=== PATIENT | male | born 1985 | race Caucasian/White ===

== ENCOUNTER 2019-05-23 04:27 | Inpatient (IN) | payer MEDICAID ==
[2019-05-23] VITALS (40 sets, daily range): BP systolic 138–175; BP diastolic 92–115
[~2019-05-23] VITALS: Ht 370.8 cm; Wt 40.4 kg
[2019-05-23] MEDS ORDERED: ASPIRIN 81MG TABLET PO ONE (04:45)
[2019-05-23] MEDS ORDERED: DILTIAZEM HCL 5MG/ML 5ML VIAL IV ONE ×2 (04:45→05:45)
[2019-05-23] MEDS ORDERED: DILTIAZEM HCL 125 MG in DEXT 5% WATER 100 ML IV ONE ×2 (04:45→05:00)
[2019-05-23 05:01] LABS: BASOPHILS % 1.2 % (0.0-2.0); EOSINOPHILS % 7.1 % (0.0-5.0); HEMATOCRIT. 31.8 % (42.0-52.0); HEMOGLOBIN. 10.7 g/dL (14.0-18.0); MEAN CORPUSCULAR HEMOGLOBIN 29.2 pg (28.0-32.0); MEAN PLATELET VOLUME 7.4 fl (7.4-10.4); MONOCYTES % 7.1 % (2.0-8.0); NEUTROPHILS % 55.6 % (40.0-76.0); PLATELET 215 x1000/uL (130-400); RED BLOOD CELL COUNT 3.65 mill/uL (4.7-6.1); RED CELL DISTRIBUTION WIDTH 14.7 % (11.6-14.6)
[2019-05-23 05:11] LABS: CHLORIDE 98 mEq/L (98-107)
[2019-05-23] MEDS ORDERED: NITROGLYCERIN 0.4MG TABLET SL SL PRN ×2 (08:00)
[2019-05-23] MEDS ORDERED: ZOLPIDEM TARTRATE 5MG TABLET PO PRN (08:00)
[2019-05-23] MEDS ORDERED: DOCUSATE SODIUM 100MG CAPSULE PO PRN (08:15)
[2019-05-23] MEDS ORDERED: DIPHENHYDRAMINE 50MG/ML VIAL IV PRN (08:15)
[2019-05-23] MEDS ORDERED: ONDANSETRON HCL 4MG/2ML INJ IV PRN (08:15)
[2019-05-23] MEDS ORDERED: GUAIFENESIN 200MG/10ML SUGAR FREE UDC PO PRN (08:15)
[2019-05-23] MEDS ORDERED: LORAZEPAM 0.5MG TABLET PO PRN (08:15)
[2019-05-23] MEDS ORDERED: IPRATROPIUM/ALBUTEROL 0.5-3(2.5)MG/3ML NEB NEB PRN (08:15)
[2019-05-23] MEDS ORDERED: CLONIDINE 0.1MG TABLET PO PRN (08:15)
[2019-05-23] MEDS ORDERED: MAGNESIUM/ALUMINUM HYDROXIDE/SIMETHICONE 30ML UDC PO PRN (08:15)
[2019-05-23] MEDS: ACETAMINOPHEN 325MG TABLET PO PRN ×4 (09:22→22:19)
[2019-05-23] MEDS: FOLIC ACID/VITAMIN B COMP W-C TABLET PO SCH (09:22)
[2019-05-23] MEDS: FAMOTIDINE 20MG TABLET PO SCH (09:22)
[2019-05-23] MEDS: SEVELAMER CARBONATE 800 MG TABLET PO SCH ×3 (09:22→18:16)
[2019-05-23] MEDS: ASPIRIN 325MG EC TABLET PO SCH (09:22)
[2019-05-23] MEDS: ENOXAPARIN 30MG/0.3ML SYR SUBCUT SCH (09:23)
[2019-05-23] MEDS: DILTIAZEM HCL 90MG TABLET PO SCH ×3 (13:00→23:17)
[2019-05-23 15:54] LABS: CREATINE KINASE MB FRACTION 1.9 ng/mL (0.5-3.6)
[2019-05-24] VITALS (21 sets, daily range): BP systolic 135–170; BP diastolic 66–102
[2019-05-24 01:03] LABS: CREATINE KINASE 78 IU/L (39-308)
[2019-05-24 01:04] LABS: CREATINE KINASE MB FRACTION 1.6 ng/mL (0.5-3.6)
[2019-05-24] MEDS: ACETAMINOPHEN 325MG TABLET PO PRN ×2 (03:34→08:11)
[2019-05-24] MEDS: DILTIAZEM HCL 90MG TABLET PO SCH ×2 (05:18→11:05)
[2019-05-24] MEDS: FOLIC ACID/VITAMIN B COMP W-C TABLET PO SCH (08:07)
[2019-05-24] MEDS: FAMOTIDINE 20MG TABLET PO SCH (08:08)
[2019-05-24] MEDS: SEVELAMER CARBONATE 800 MG TABLET PO SCH (08:09)
[2019-05-24] MEDS: ASPIRIN 325MG EC TABLET PO SCH (08:09)
[2019-05-24] MEDS: ENOXAPARIN 30MG/0.3ML SYR SUBCUT SCH (08:09)
[2019-05-24 09:42] LABS: HEMOGLOBIN 9.7 g/dL (14.0-18.0); MEAN CORPUSCULAR VOLUME 86.9 fL (80.0-94.0); PLATELET 163 x1000/uL (130-400); RED BLOOD CELL COUNT 3.34 mill/uL (4.7-6.1); RED CELL DISTRIBUTION WIDTH 14.5 % (11.6-14.6)
[2019-05-24] MEDS ORDERED: DILT360C27 PO (11:49)
[2019-05-24] MEDS ORDERED: ASPI-986 PO (11:52)
[2019-05-24] MEDS ORDERED: SODIUM POLYSTYRENE SULFONATE 15 G/60 ML BOT PO NR (12:30)
[2019-05-24] MEDS ORDERED: BUTALBITAL/ACETAMINOPHEN/CAFFEINE 50/325/40MG TABLET PO PRN (13:00)
== END 2019-05-24 13:10 | disposition home or self-care (01) | DRG 201 ==
LOC: ER 04:27 → EDBEDREQSVC 06:31 → CVICU 06:31 → EDBEDREQ 06:31 → EDBEDREQTM 06:31 → ENRESERV 07:15
PROVIDERS: ADMIT Internal Medicine; ATTEND Internal Medicine
PROC: 3E1M39Z Irrigation of Peritoneal Cavity using Dialysate, Percutaneous Approach (ICD-10-PCS; principal; 2019-05-23)
DX: I48.91 Unspecified atrial fibrillation (principal); E43 Unspecified severe protein-calorie malnutrition; I12.0 Hypertensive chronic kidney disease with stage 5 chronic kidney disease or end stage renal disease; N18.6 End stage renal disease; E83.51 Hypocalcemia; E87.1 Hypo-osmolality and hyponatremia; Z90.49 Acquired absence of other specified parts of digestive tract; Z99.2 Dependence on renal dialysis; E66.01 Morbid (severe) obesity due to excess calories; I88.9 Nonspecific lymphadenitis, unspecified; Z68.1 Body mass index [BMI] 19.9 or less, adult
CPT/HCPCS: 36415; 71045; 80048; 80061; 82550; 82553; 83036; 83880; 84484; 85027; 93005; 93306; 93970; 96365; 96366; 96376; 99291; J1650; J3490; J7042; J7060; J7620

== ENCOUNTER 2022-05-17 07:53 | Inpatient (IN) | payer MEDICAID, OTHER ==
[~2022-05-17] VITALS: Ht 182.9 cm; Wt 86.2 kg
[2022-05-17] VITALS (38 sets, daily range): BP systolic 97–172; BP diastolic 54–104
[~2022-05-17 07:53] MED LIST: ASPI-986 PO; DILT360C27 PO
[2022-05-17] MEDS ORDERED: KETOROLAC 30MG/ML VIAL IV STA (08:05)
[2022-05-17] MEDS ORDERED: SODIUM CHLORIDE 0.9% 500 ML IV ONE (08:15)
[2022-05-17] MEDS ORDERED: METOCLOPRAMIDE HCL 10MG/2ML VIAL IV ONE (08:15)
[2022-05-17 08:49] LABS: CHLORIDE 93 mEq/L (98-107)
[2022-05-17 08:52] LABS: EOSINOPHILS % 3.3 % (0.0-5.0); HEMATOCRIT. 36.6 % (42.0-52.0); HEMOGLOBIN. 12.4 g/dL (14.0-18.0); LYMPHOCYTES % 23.2 % (20.0-50.0); MEAN CORPUSCULAR VOLUME 91.7 fL (80.0-94.0); MEAN PLATELET VOLUME 7.9 fl (7.4-10.4); MONOCYTES % 8.3 % (2.0-8.0); NEUTROPHILS % 64.2 % (40.0-76.0); PLATELET 147 x1000/uL (130-400); RED BLOOD CELL COUNT 3.99 mill/uL (4.7-6.1); RED CELL DISTRIBUTION WIDTH 14.1 % (11.6-14.6)
[2022-05-17] MEDS ORDERED: MORPHINE SULFATE 4 MG/ML CPJ (NOT FOR IM USE) IV ONE (09:45)
[2022-05-17] MEDS ORDERED: DEXAMETHASONE 10 MG/ML VIAL IV ONE (11:15)
[2022-05-17] MEDS ORDERED: LEVETIRACETAM 1000MG PREMIX 100 ML IV ONE (11:15)
[2022-05-17] MEDS ORDERED: MORPHINE SULFATE 2 MG/ML CPJ (NOT FOR IM USE) IV NR (11:45)
[2022-05-17] MEDS ORDERED: HYDRALAZINE 20MG/ML VIAL IV ONE (12:00)
[2022-05-17] MEDS ORDERED: NICARDIPINE 100 MG in SODIUM CHLORIDE 0.9% 60 ML IV PRN (15:00)
[2022-05-17] MEDS ORDERED: NALOXONE HCL 0.4MG/ML VIAL IV PRN (15:45)
[2022-05-17] MEDS ORDERED: HYDR-4135 MT (15:54)
[2022-05-17] MEDS ORDERED: CINA60 MT (15:54)
[2022-05-17] MEDS ORDERED: CARV25TA47 MT (15:54)
[2022-05-17] MEDS ORDERED: SEVE800T8 MT (15:54)
[2022-05-17] MEDS ORDERED: NEPVIT MT (15:54)
[2022-05-17] MEDS: MORPHINE SULFATE 2 MG/ML CPJ (NOT FOR IM USE) IV PRN ×2 (16:04→20:04)
[2022-05-17] MEDS: LEVETIRACETAM 500MG PREMIX 100 ML IV SCH (17:56)
[2022-05-17] MEDS: HYDRALAZINE HCL 50MG TABLET PO SCH (17:56)
[2022-05-17] MEDS: ONDANSETRON HCL 4MG/2ML INJ IV PRN (20:03)
[2022-05-17] MEDS: CARVEDILOL 12.5MG TABLET PO SCH (20:03)
[2022-05-18] VITALS (91 sets, daily range): BP systolic 94–159; BP diastolic 38–89
[2022-05-18] MEDS: MORPHINE SULFATE 2 MG/ML CPJ (NOT FOR IM USE) IV PRN ×4 (00:27→20:16)
[2022-05-18 05:17] LABS: BASOPHILS % 0.1 % (0.0-2.0); EOSINOPHILS % 0.1 % (0.0-5.0); HEMATOCRIT. 37.6 % (42.0-52.0); HEMOGLOBIN. 12.8 g/dL (14.0-18.0); LYMPHOCYTES % 18.2 % (20.0-50.0); MEAN CORPUSCULAR HEMOGLOBIN 31.4 pg (28.0-32.0); MEAN CORPUSCULAR VOLUME 92.5 fL (80.0-94.0); MEAN PLATELET VOLUME 8.1 fl (7.4-10.4); MONOCYTES % 3.9 % (2.0-8.0); NEUTROPHILS % 77.7 % (40.0-76.0); PLATELET 161 x1000/uL (130-400); RED BLOOD CELL COUNT 4.07 mill/uL (4.7-6.1)
[2022-05-18 05:23] LABS: PHOSPHORUS 6.5 mg/dL (2.5-4.9)
[2022-05-18] MEDS: HYDRALAZINE HCL 50MG TABLET PO SCH ×2 (09:00→17:00)
[2022-05-18] MEDS: CARVEDILOL 12.5MG TABLET PO SCH ×2 (09:00→20:22)
[2022-05-18] MEDS: LEVETIRACETAM 500MG PREMIX 100 ML IV SCH ×2 (09:31→20:11)
[2022-05-18] MEDS ORDERED: LIDOCAINE HCL 2%/EPINEPHRINE 1:100,000 20 ML VIAL INFIL ONE (10:51)
[2022-05-18] MEDS ORDERED: THROMBIN (BOVINE) 5000 UNITS/VIAL TOP ONE (10:52)
[2022-05-18] MEDS ORDERED: BACITRACIN 15GM TUBE TOP ONE (10:54)
[2022-05-18] MEDS ORDERED: GENTAMICIN SULF 40MG/ML 2ML VIAL ONE (10:54)
[2022-05-18] MEDS ORDERED: PROPOFOL 200MG/20ML VIAL IV ONE (12:53)
[2022-05-18] MEDS ORDERED: FENTANYL CITRATE/PF 50MCG/ML 2ML VIAL ONE (12:53)
[2022-05-18] MEDS ORDERED: LIDOCAINE HCL 2% 5ML SYRINGE IV ONE (12:53)
[2022-05-18] MEDS ORDERED: ROCURONIUM BROMIDE 10MG/ML VIAL 5ML IV ONE (13:01)
[2022-05-18 13:49] LABS: HEPATITIS B SURFACE ANTIGEN NEGATIVE
[2022-05-18] MEDS ORDERED: GLYCOPYRROLATE 0.2 MG/ML 2ML VIAL ONE ×2 (14:26→14:48)
[2022-05-18] MEDS ORDERED: NEOSTIGMINE METHYLSULFATE 1MG/ML 10 ML VIAL ONE (14:26)
[2022-05-18] MEDS ORDERED: DEXAMETHASONE 4MG/ML 1ML VIAL ONE (14:48)
[2022-05-18] MEDS ORDERED: ONDANSETRON HCL 4MG/2ML INJ ONE (14:48)
[2022-05-18] MEDS: NICARDIPINE 100 MG in SODIUM CHLORIDE 0.9% 60 ML IV PRN (15:26)
[2022-05-18] MEDS: DEXT 5%/0.9% NACL 1,000 ML IV SCH (15:56)
[2022-05-18] MEDS: CEFAZOLIN 1000MG PREMIX 50 ML IV SCH (21:57)
[2022-05-18] MEDS ORDERED: CEFAZOLIN SODIUM 1000MG/VIAL IV SCH (22:00)
[2022-05-19] VITALS (110 sets, daily range): BP systolic 106–180; BP diastolic 46–116
[2022-05-19] MEDS: MORPHINE SULFATE 2 MG/ML CPJ (NOT FOR IM USE) IV PRN ×3 (00:11→20:18)
[2022-05-19 04:33] LABS: BASOPHILS % 0.1 % (0.0-2.0); HEMATOCRIT. 35.6 % (42.0-52.0); LYMPHOCYTES % 12.1 % (20.0-50.0); MEAN CORPUSCULAR HEMOGLOBIN 31.6 pg (28.0-32.0); MEAN CORPUSCULAR VOLUME 93.4 fL (80.0-94.0); MEAN PLATELET VOLUME 7.9 fl (7.4-10.4); MONOCYTES % 4.7 % (2.0-8.0); NEUTROPHILS % 83.1 % (40.0-76.0); PLATELET 150 x1000/uL (130-400); RED BLOOD CELL COUNT 3.81 mill/uL (4.7-6.1); RED CELL DISTRIBUTION WIDTH 14.1 % (11.6-14.6)
[2022-05-19 04:49] LABS: PHOSPHORUS 6.5 mg/dL (2.5-4.9)
[2022-05-19] MEDS: CEFAZOLIN 1000MG PREMIX 50 ML IV SCH ×3 (05:56→21:34)
[2022-05-19] MEDS: CARVEDILOL 12.5MG TABLET PO SCH ×2 (08:52→20:07)
[2022-05-19] MEDS: LEVETIRACETAM 500MG PREMIX 100 ML IV SCH ×2 (08:52→20:07)
[2022-05-19] MEDS: HYDRALAZINE HCL 50MG TABLET PO SCH (08:52)
[2022-05-19] MEDS: DEXT 5%/0.9% NACL 1,000 ML IV SCH (11:45)
[2022-05-19] MEDS: NICARDIPINE 100 MG in SODIUM CHLORIDE 0.9% 60 ML IV PRN ×2 (12:14→21:34)
[2022-05-19] MEDS: HYDRALAZINE HCL 100MG TABLET PO SCH (20:07)
[2022-05-20] VITALS (101 sets, daily range): BP systolic 85–189; BP diastolic 49–88
[2022-05-20] MEDS: MORPHINE SULFATE 2 MG/ML CPJ (NOT FOR IM USE) IV PRN ×5 (01:02→21:11)
[2022-05-20] MEDS: DEXT 5%/0.9% NACL 1,000 ML IV SCH (08:01)
[2022-05-20] MEDS: CARVEDILOL 12.5MG TABLET PO SCH ×2 (08:23→21:10)
[2022-05-20] MEDS: LEVETIRACETAM 500MG PREMIX 100 ML IV SCH ×2 (08:23→21:10)
[2022-05-20] MEDS: HYDRALAZINE HCL 100MG TABLET PO SCH ×2 (08:23→21:10)
[2022-05-20] MEDS: NEO/POLYMYX B SULF/DEXAMETH 0.1% OPHTH SUSP 5ML BOTHEYE SCH ×2 (11:08→17:51)
[2022-05-20] MEDS: CALCIUM ACETATE 667MG CAPSULE PO SCH ×2 (11:08→16:56)
[2022-05-20] MEDS: NICARDIPINE 100 MG in SODIUM CHLORIDE 0.9% 60 ML IV PRN ×2 (11:09→21:21)
[2022-05-21] VITALS (98 sets, daily range): BP systolic 0–177; BP diastolic 0–96
[2022-05-21] MEDS: DEXT 5%/0.9% NACL 1,000 ML IV SCH (02:37)
[2022-05-21] MEDS: MORPHINE SULFATE 2 MG/ML CPJ (NOT FOR IM USE) IV PRN ×4 (02:40→14:26)
[2022-05-21] MEDS: NEO/POLYMYX B SULF/DEXAMETH 0.1% OPHTH SUSP 5ML BOTHEYE SCH ×4 (07:26→17:02)
[2022-05-21] MEDS: CALCIUM ACETATE 667MG CAPSULE PO SCH ×3 (07:29→17:02)
[2022-05-21] MEDS: LEVETIRACETAM 500MG PREMIX 100 ML IV SCH ×2 (08:13→20:34)
[2022-05-21] MEDS: HYDRALAZINE HCL 100MG TABLET PO SCH ×2 (08:13→20:34)
[2022-05-21] MEDS: CARVEDILOL 12.5MG TABLET PO SCH ×2 (08:14→20:34)
[2022-05-21] MEDS: NICARDIPINE 100 MG in SODIUM CHLORIDE 0.9% 60 ML IV PRN (10:21)
[2022-05-21 15:54] LABS: BASOPHILS % 0.7 % (0.0-2.0); HEMATOCRIT. 38.6 % (42.0-52.0); HEMOGLOBIN. 12.9 g/dL (14.0-18.0); LYMPHOCYTES % 14.8 % (20.0-50.0); MEAN CORPUSCULAR HEMOGLOBIN 31.4 pg (28.0-32.0); MEAN CORPUSCULAR VOLUME 94.2 fL (80.0-94.0); MEAN PLATELET VOLUME 7.6 fl (7.4-10.4); MONOCYTES % 9.3 % (2.0-8.0); NEUTROPHILS % 68.2 % (40.0-76.0); PLATELET 133 x1000/uL (130-400); RED CELL DISTRIBUTION WIDTH 14.4 % (11.6-14.6)
[2022-05-21] MEDS: ONDANSETRON HCL 4MG/2ML INJ IV PRN (17:58)
[2022-05-21] MEDS: MORPHINE SULFATE 4 MG/ML CPJ (NOT FOR IM USE) IV PRN ×2 (19:39→23:45)
[2022-05-22] VITALS (100 sets, daily range): BP systolic 119–165; BP diastolic 69–96
[2022-05-22] MEDS: MORPHINE SULFATE 4 MG/ML CPJ (NOT FOR IM USE) IV PRN ×4 (03:23→11:02)
[2022-05-22] MEDS: NEO/POLYMYX B SULF/DEXAMETH 0.1% OPHTH SUSP 5ML BOTHEYE SCH ×5 (03:30→17:10)
[2022-05-22 05:42] LABS: EOSINOPHILS % 11.9 % (0.0-5.0); HEMATOCRIT. 35.9 % (42.0-52.0); LYMPHOCYTES % 21.4 % (20.0-50.0); MEAN CORPUSCULAR HEMOGLOBIN 31.1 pg (28.0-32.0); MEAN PLATELET VOLUME 7.9 fl (7.4-10.4); NEUTROPHILS % 56.7 % (40.0-76.0); PLATELET 130 x1000/uL (130-400); RED BLOOD CELL COUNT 3.86 mill/uL (4.7-6.1); RED CELL DISTRIBUTION WIDTH 13.6 % (11.6-14.6)
[2022-05-22] MEDS: CALCIUM ACETATE 667MG CAPSULE PO SCH ×3 (07:44→17:10)
[2022-05-22] MEDS: LEVETIRACETAM 500MG PREMIX 100 ML IV SCH ×2 (08:01→21:23)
[2022-05-22] MEDS: HYDRALAZINE HCL 100MG TABLET PO SCH ×2 (08:01→21:23)
[2022-05-22] MEDS: CARVEDILOL 12.5MG TABLET PO SCH ×2 (08:01→21:23)
[2022-05-22] MEDS ORDERED: CLONIDINE 0.1MG TABLET PO PRN (10:15)
[2022-05-22] MEDS: HYDROCODONE/ACETAMINOPHEN 5/325MG TABLET PO PRN (14:58)
[2022-05-22] MEDS ORDERED: NALOXONE HCL 0.4MG/ML VIAL IV PRN (16:45)
[2022-05-22] MEDS: ONDANSETRON HCL 4MG/2ML INJ IV PRN (18:03)
[2022-05-22] MEDS ORDERED: MAGNESIUM 1 G PREMIX 100 ML IV NR (19:00)
[2022-05-23] VITALS (73 sets, daily range): BP systolic 123–168; BP diastolic 70–96
[2022-05-23] MEDS: NEO/POLYMYX B SULF/DEXAMETH 0.1% OPHTH SUSP 5ML BOTHEYE SCH ×5 (00:33→23:03)
[2022-05-23] MEDS: HYDROCODONE/ACETAMINOPHEN 5/325MG TABLET PO PRN ×2 (00:39→10:50)
[2022-05-23] MEDS: CALCIUM ACETATE 667MG CAPSULE PO SCH ×3 (06:41→18:13)
[2022-05-23 07:00] LABS: BASOPHILS % 0.4 % (0.0-2.0); HEMATOCRIT. 34.4 % (42.0-52.0); HEMOGLOBIN. 11.7 g/dL (14.0-18.0); LYMPHOCYTES % 18.6 % (20.0-50.0); MEAN CORPUSCULAR HEMOGLOBIN 31.4 pg (28.0-32.0); MEAN CORPUSCULAR VOLUME 92.3 fL (80.0-94.0); MEAN PLATELET VOLUME 8.2 fl (7.4-10.4); MONOCYTES % 8.6 % (2.0-8.0); NEUTROPHILS % 63.4 % (40.0-76.0); PLATELET 133 x1000/uL (130-400); RED BLOOD CELL COUNT 3.73 mill/uL (4.7-6.1); RED CELL DISTRIBUTION WIDTH 13.6 % (11.6-14.6)
[2022-05-23] MEDS: CARVEDILOL 12.5MG TABLET PO SCH ×2 (08:33→20:31)
[2022-05-23] MEDS: LEVETIRACETAM 500MG PREMIX 100 ML IV SCH ×2 (08:33→20:31)
[2022-05-23] MEDS: FOLIC ACID/VITAMIN B COMP W-C TABLET PO SCH (08:34)
[2022-05-23] MEDS: HYDRALAZINE HCL 100MG TABLET PO SCH ×2 (08:34→20:32)
[2022-05-23] MEDS: NICARDIPINE 100 MG in SODIUM CHLORIDE 0.9% 60 ML IV PRN (11:52)
[2022-05-23] MEDS: AMLODIPINE 5MG TABLET PO SCH (13:43)
[2022-05-23] MEDS ORDERED: HYDRALAZINE 20MG/ML VIAL IV PRN (18:45)
[2022-05-24] VITALS (70 sets, daily range): BP systolic 121–173; BP diastolic 74–103
[2022-05-24 05:27] LABS: BASOPHILS % 0.2 % (0.0-2.0); HEMATOCRIT. 35.9 % (42.0-52.0); LYMPHOCYTES % 18.4 % (20.0-50.0); MEAN CORPUSCULAR HEMOGLOBIN 31.3 pg (28.0-32.0); MEAN CORPUSCULAR VOLUME 93.5 fL (80.0-94.0); MEAN PLATELET VOLUME 8.1 fl (7.4-10.4); MONOCYTES % 6.5 % (2.0-8.0); NEUTROPHILS % 67.9 % (40.0-76.0); PLATELET 146 x1000/uL (130-400); RED BLOOD CELL COUNT 3.83 mill/uL (4.7-6.1); RED CELL DISTRIBUTION WIDTH 13.8 % (11.6-14.6)
[2022-05-24] MEDS: NEO/POLYMYX B SULF/DEXAMETH 0.1% OPHTH SUSP 5ML BOTHEYE SCH ×2 (06:10→12:01)
[2022-05-24] MEDS: CALCIUM ACETATE 667MG CAPSULE PO SCH ×3 (06:10→17:15)
[2022-05-24] MEDS: AMLODIPINE 5MG TABLET PO SCH (08:51)
[2022-05-24] MEDS: FOLIC ACID/VITAMIN B COMP W-C TABLET PO SCH (08:51)
[2022-05-24] MEDS: CARVEDILOL 12.5MG TABLET PO SCH ×2 (08:51→21:28)
[2022-05-24] MEDS: HYDRALAZINE HCL 100MG TABLET PO SCH ×3 (08:51→21:28)
[2022-05-24] MEDS: LEVETIRACETAM 500MG PREMIX 100 ML IV SCH ×2 (08:52→21:27)
[2022-05-24] MEDS: NICARDIPINE 100 MG in SODIUM CHLORIDE 0.9% 60 ML IV PRN (09:15)
[2022-05-24] MEDS: ONDANSETRON HCL 4MG/2ML INJ IV PRN (10:45)
[2022-05-24] MEDS: MORPHINE SULFATE 2 MG/ML CPJ (NOT FOR IM USE) IV PRN (10:53)
[2022-05-24] MEDS: DILTIAZEM HCL 30MG TABLET PO SCH ×2 (12:03→18:21)
[2022-05-24] MEDS: DEXAMETHASONE 4MG/ML 1ML VIAL IV SCH ×2 (12:45→17:15)
[2022-05-24 18:52] LABS: BG BASE EXCESS -0.1 mmol/L (-2.0-2.0); BG CARBOXYHEMOGLOBIN 1.5 % (0.5-1.5); BG DEOXYHEMOGLOBIN 3.8 % (0.0-5.0); BG FRACTION INSPIRED OXYGEN 21; BG HCO3 ACT 24.6 mmol/L (22.0-26.0); BG METHEMOGLOBIN 0.1 % (0.0-1.5); BG OXYGEN SATURATION 96.1 % (92.0-98.5); BG OXYHEMOGLOBIN 94.6 % (94.0-97.0); BG PCO2 40.2 mmHg (35.0-45.0); BG PH 7.404 (7.350-7.450); BG PO2 85.4 mmHg (75.0-100.0); BG SAMPLE SITE RIGHT BRACHIAL; BG VENT MODE ROOM AIR
[2022-05-25] VITALS (64 sets, daily range): BP systolic 113–147; BP diastolic 69–93
[2022-05-25] MEDS: DEXAMETHASONE 4MG/ML 1ML VIAL IV SCH ×5 (00:30→23:37)
[2022-05-25] MEDS: DILTIAZEM HCL 30MG TABLET PO SCH ×5 (00:31→23:36)
[2022-05-25] MEDS: NICARDIPINE 100 MG in SODIUM CHLORIDE 0.9% 60 ML IV PRN (02:11)
[2022-05-25 05:03] LABS: BASOPHILS % 0.2 % (0.0-2.0); EOSINOPHILS % 0.2 % (0.0-5.0); HEMOGLOBIN. 12.1 g/dL (14.0-18.0); LYMPHOCYTES % 16.1 % (20.0-50.0); MEAN CORPUSCULAR HEMOGLOBIN 31.1 pg (28.0-32.0); MEAN CORPUSCULAR VOLUME 92.2 fL (80.0-94.0); MEAN PLATELET VOLUME 8.4 fl (7.4-10.4); MONOCYTES % 1.5 % (2.0-8.0); PLATELET 147 x1000/uL (130-400); RED CELL DISTRIBUTION WIDTH 13.6 % (11.6-14.6)
[2022-05-25] MEDS: HYDRALAZINE HCL 100MG TABLET PO SCH ×3 (05:56→21:13)
[2022-05-25] MEDS: MORPHINE SULFATE 2 MG/ML CPJ (NOT FOR IM USE) IV PRN ×3 (06:11→23:34)
[2022-05-25] MEDS: CALCIUM ACETATE 667MG CAPSULE PO SCH ×3 (07:29→17:06)
[2022-05-25] MEDS: CARVEDILOL 12.5MG TABLET PO SCH ×2 (08:07→21:15)
[2022-05-25] MEDS: FOLIC ACID/VITAMIN B COMP W-C TABLET PO SCH (08:07)
[2022-05-25] MEDS: LEVETIRACETAM 500MG PREMIX 100 ML IV SCH ×2 (08:08→23:35)
[2022-05-25] MEDS: HYDROCODONE/ACETAMINOPHEN 5/325MG TABLET PO PRN (08:40)
[2022-05-26] VITALS (14 sets, daily range): BP systolic 96–126; BP diastolic 60–76
[2022-05-26] MEDS: DILTIAZEM HCL 30MG TABLET PO SCH ×4 (06:00→23:56)
[2022-05-26] MEDS: HYDRALAZINE HCL 100MG TABLET PO SCH (06:00)
[2022-05-26] MEDS: DEXAMETHASONE 4MG/ML 1ML VIAL IV SCH (06:27)
[2022-05-26] MEDS: MORPHINE SULFATE 2 MG/ML CPJ (NOT FOR IM USE) IV PRN ×3 (06:34→22:57)
[2022-05-26 06:44] LABS: BASOPHILS % 0.2 % (0.0-2.0); HEMATOCRIT. 34.1 % (42.0-52.0); HEMOGLOBIN. 11.6 g/dL (14.0-18.0); LYMPHOCYTES % 13.3 % (20.0-50.0); MEAN CORPUSCULAR HEMOGLOBIN 31.3 pg (28.0-32.0); MEAN CORPUSCULAR VOLUME 91.6 fL (80.0-94.0); MEAN PLATELET VOLUME 8.7 fl (7.4-10.4); MONOCYTES % 2.7 % (2.0-8.0); NEUTROPHILS % 83.8 % (40.0-76.0); PLATELET 153 x1000/uL (130-400); RED BLOOD CELL COUNT 3.72 mill/uL (4.7-6.1); RED CELL DISTRIBUTION WIDTH 13.7 % (11.6-14.6)
[2022-05-26] MEDS: CALCIUM ACETATE 667MG CAPSULE PO SCH ×3 (08:09→17:00)
[2022-05-26] MEDS: FOLIC ACID/VITAMIN B COMP W-C TABLET PO SCH (08:09)
[2022-05-26] MEDS: CARVEDILOL 12.5MG TABLET PO SCH ×2 (09:00→21:00)
[2022-05-26] MEDS: LEVETIRACETAM 500MG PREMIX 100 ML IV SCH ×2 (11:47→22:53)
[2022-05-26] MEDS: HYDRALAZINE HCL 50MG TABLET PO SCH ×2 (14:00→22:00)
[2022-05-27] VITALS: BP 118/67
[2022-05-27] MEDS: ONDANSETRON HCL 4MG/2ML INJ IV PRN (00:06)
[2022-05-27 04:00] VITALS: BP 134/73
[2022-05-27] MEDS: DILTIAZEM HCL 30MG TABLET PO SCH ×2 (05:50→12:00)
[2022-05-27] MEDS: HYDRALAZINE HCL 50MG TABLET PO SCH ×2 (05:51→14:00)
[2022-05-27 07:18] LABS: BASOPHILS % 0.1 % (0.0-2.0); HEMATOCRIT. 35.2 % (42.0-52.0); MEAN CORPUSCULAR HEMOGLOBIN 31.2 pg (28.0-32.0); MEAN CORPUSCULAR VOLUME 91.9 fL (80.0-94.0); MONOCYTES % 8.2 % (2.0-8.0); NEUTROPHILS % 74.7 % (40.0-76.0); PLATELET 152 x1000/uL (130-400); RED BLOOD CELL COUNT 3.84 mill/uL (4.7-6.1); RED CELL DISTRIBUTION WIDTH 13.5 % (11.6-14.6)
[2022-05-27 07:54] VITALS: BP 137/78
[2022-05-27] MEDS: CARVEDILOL 12.5MG TABLET PO SCH (08:24)
[2022-05-27] MEDS: CALCIUM ACETATE 667MG CAPSULE PO SCH ×3 (08:25→17:40)
[2022-05-27] MEDS: LEVETIRACETAM 500MG PREMIX 100 ML IV SCH (08:26)
[2022-05-27] MEDS: FOLIC ACID/VITAMIN B COMP W-C TABLET PO SCH (08:26)
[2022-05-27] MEDS ORDERED: SODIUM POLYSTYRENE SULFONATE 15 G/60 ML BOT PO NR (09:00)
[2022-05-27] MEDS ORDERED: ALBUTEROL (0.083%) 2.5MG/3ML NEB HHN NR (09:00)
[2022-05-27 12:00] VITALS: BP 129/83
[2022-05-27 16:00] VITALS: BP 119/72
== END 2022-05-27 19:03 | disposition left against medical advice (07) | DRG 21 ==
LOC: ER 07:59 → 7EST 10:45 → MICUNO 15:11 → MICUSO 05-23 07:45 → 8WST 05-25 15:45
PROVIDERS: ADMIT Internal Medicine; ATTEND Internal Medicine
PROC: 00C40ZZ Extirpation of Matter from Intracranial Subdural Space, Open Approach (ICD-10-PCS; principal; 2022-05-18)
PROC: 009400Z Drainage of Intracranial Subdural Space with Drainage Device, Open Approach (ICD-10-PCS; 2022-05-18)
PROC: 4A103BD Monitoring of Intracranial Pressure, Percutaneous Approach (ICD-10-PCS; 2022-05-18)
PROC: 00H032Z Insertion of Monitoring Device into Brain, Percutaneous Approach (ICD-10-PCS; 2022-05-18)
PROC: 5A1D70Z Performance of Urinary Filtration, Intermittent, Less than 6 Hours Per Day (ICD-10-PCS; 2022-05-19)
PROC: 5A1D70Z Performance of Urinary Filtration, Intermittent, Less than 6 Hours Per Day (ICD-10-PCS; 2022-05-22)
PROC: 5A1D70Z Performance of Urinary Filtration, Intermittent, Less than 6 Hours Per Day (ICD-10-PCS; 2022-05-24)
PROC: 5A1D70Z Performance of Urinary Filtration, Intermittent, Less than 6 Hours Per Day (ICD-10-PCS; 2022-05-26)
DX: I62.02 Nontraumatic subacute subdural hemorrhage (principal); G93.41 Metabolic encephalopathy; E43 Unspecified severe protein-calorie malnutrition; E87.1 Hypo-osmolality and hyponatremia; D63.1 Anemia in chronic kidney disease; E83.39 Other disorders of phosphorus metabolism; E83.51 Hypocalcemia; I12.0 Hypertensive chronic kidney disease with stage 5 chronic kidney disease or end stage renal disease; N18.6 End stage renal disease; I95.9 Hypotension, unspecified; Z20.822 Contact with and (suspected) exposure to COVID-19; I48.91 Unspecified atrial fibrillation; I62.03 Nontraumatic chronic subdural hemorrhage; E87.6 Hypokalemia; D72.819 Decreased white blood cell count, unspecified; E87.5 Hyperkalemia; N25.81 Secondary hyperparathyroidism of renal origin; Z53.29 Procedure and treatment not carried out because of patient's decision for other reasons; J45.909 Unspecified asthma, uncomplicated; Z91.15 Patient's noncompliance with renal dialysis; Z79.899 Other long term (current) drug therapy; Z99.2 Dependence on renal dialysis; Z90.49 Acquired absence of other specified parts of digestive tract; Z68.25 Body mass index [BMI] 25.0-25.9, adult; Z82.49 Family history of ischemic heart disease and other diseases of the circulatory system
CPT/HCPCS: 36415; 36600; 70551; 71045; 80048; 80053; 82140; 82375; 82805; 83735; 84100; 84484; 85025; 85651; 86705; 86709; 86803; 86850; 86900; 87070; 87075; 87340; 87426; 90935; 92523; 93005; 93306; 94644; 97162; 97166; 97535; 99291; C1713; J0360; J0690; J1100; J1580; J1885; J1953; J2270; J2405; J2704; J2710; J2765; J3010; J3475; J3490; J7030; J7042; J7050; J7120

== ENCOUNTER 2022-05-28 20:25 | Inpatient (IN) | payer MEDICAID, OTHER ==
[~2022-05-28] VITALS: Ht 185.4 cm; Wt 94.8 kg
[~2022-05-28 20:25] MED LIST changes: -ASPI-986 PO; +CARV25TA47 MT; +CINA60 MT; -DILT360C27 PO; +HYDR-4135 MT; +NEPVIT MT; +SEVE800T8 MT
[2022-05-28] MEDS ORDERED: ONDANSETRON HCL 4MG/2ML INJ IV STA (21:44)
[2022-05-28] MEDS ORDERED: MORPHINE SULFATE 4 MG/ML CPJ (NOT FOR IM USE) IV STA (21:44)
[2022-05-28] MEDS ORDERED: SODIUM CHLORIDE 0.9% 1,000 ML IV ONE (21:45)
[2022-05-28 21:54] LABS: BASOPHILS % 0.3 % (0.0-2.0); EOSINOPHILS % 10.2 % (0.0-5.0); HEMATOCRIT. 35.6 % (42.0-52.0); HEMOGLOBIN. 11.8 g/dL (14.0-18.0); LYMPHOCYTES % 21.1 % (20.0-50.0); MEAN CORPUSCULAR HEMOGLOBIN 30.6 pg (28.0-32.0); MEAN CORPUSCULAR VOLUME 92.1 fL (80.0-94.0); MEAN PLATELET VOLUME 8.7 fl (7.4-10.4); MONOCYTES % 10.5 % (2.0-8.0); NEUTROPHILS % 57.9 % (40.0-76.0); PLATELET 155 x1000/uL (130-400); RED BLOOD CELL COUNT 3.86 mill/uL (4.7-6.1); RED CELL DISTRIBUTION WIDTH 13.2 % (11.6-14.6)
[2022-05-28 22:03] LABS: CHLORIDE 94 mEq/L (98-107)
[2022-05-28] MEDS ORDERED: SODIUM POLYSTYRENE SULFONATE 15 G/60 ML BOT PO ONE (22:30)
[2022-05-28] MEDS ORDERED: SODIUM BICARBONATE 8.4% 1 MEQ/ML 50ML SYR IV ONE (22:30)
[2022-05-28] MEDS ORDERED: ALBUTEROL (0.083%) 2.5MG/3ML NEB HHN ONE (22:30)
[2022-05-28 22:41] LABS: INR 1.1; PARTIAL THROMBOPLASTIN TIME 29.6 sec (23.4-31.0); PROTHROMBIN TIME 11.4 sec (9.6-11.0)
[2022-05-29] VITALS (17 sets, daily range): BP systolic 135–175; BP diastolic 60–100
[2022-05-29] MEDS ORDERED: LEVETIRACETAM 500MG PREMIX 100 ML IV ONE (00:15)
[2022-05-29] MEDS ORDERED: NICARDIPINE 50 MG in SODIUM CHLORIDE 0.9% 230 ML IV STA (00:33)
[2022-05-29] MEDS ORDERED: NICARDIPINE 40MG/200ML PREMIX 200 ML IV PRN (01:00)
[2022-05-29] MEDS ORDERED: MORPHINE SULFATE 4 MG/ML CPJ (NOT FOR IM USE) IV ONE (04:30)
[2022-05-29] MEDS ORDERED: HYDROCODONE/ACETAMINOPHEN 5/325MG TABLET PO PRN ×2 (11:00→11:15)
[2022-05-29] MEDS ORDERED: MAGNESIUM/ALUMINUM HYDROXIDE/SIMETHICONE 30ML UDC PO PRN (11:15)
[2022-05-29] MEDS ORDERED: ACETAMINOPHEN 325MG TABLET PO PRN (11:15)
[2022-05-29] MEDS ORDERED: NALOXONE HCL 0.4MG/ML VIAL IV PRN (11:30)
[2022-05-29] MEDS: PANTOPRAZOLE SODIUM 40 MG/VIAL IV SCH (12:54)
[2022-05-29] MEDS: HYDROCODONE/ACETAMINOPHEN 10/325MG TABLET PO PRN ×2 (15:52→21:39)
[2022-05-29] MEDS: SEVELAMER CARBONATE 800 MG TABLET PO SCH ×2 (15:53→19:35)
[2022-05-29 16:26] LABS: HEPATITIS B SURFACE ANTIGEN NEGATIVE
[2022-05-29] MEDS: CLONIDINE 0.1MG TABLET PO PRN (21:39)
[2022-05-30] VITALS: BP 144/83
[2022-05-30 04:00] VITALS: BP 151/88
[2022-05-30 07:11] LABS: BASOPHILS % 0.5 % (0.0-2.0); EOSINOPHILS % 14.6 % (0.0-5.0); HEMOGLOBIN. 10.3 g/dL (14.0-18.0); LYMPHOCYTES % 20.4 % (20.0-50.0); MEAN CORPUSCULAR HEMOGLOBIN 31.4 pg (28.0-32.0); MEAN CORPUSCULAR VOLUME 91.7 fL (80.0-94.0); MEAN PLATELET VOLUME 8.8 fl (7.4-10.4); MONOCYTES % 10.7 % (2.0-8.0); NEUTROPHILS % 53.8 % (40.0-76.0); PLATELET 117 x1000/uL (130-400); RED BLOOD CELL COUNT 3.27 mill/uL (4.7-6.1); RED CELL DISTRIBUTION WIDTH 13.2 % (11.6-14.6)
[2022-05-30 08:00] VITALS: BP 151/91
[2022-05-30] MEDS: SEVELAMER CARBONATE 800 MG TABLET PO SCH ×4 (08:10→18:00)
[2022-05-30] MEDS: FOLIC ACID/VITAMIN B COMP W-C TABLET PO SCH (10:41)
[2022-05-30] MEDS: ONDANSETRON HCL 4MG/2ML INJ IV PRN (10:41)
[2022-05-30] MEDS: PANTOPRAZOLE SODIUM 40 MG/VIAL IV SCH (10:49)
[2022-05-30 11:41] LABS: CHLORIDE 101 mEq/L (98-107)
[2022-05-30 12:00] VITALS: BP 150/93
[2022-05-30] MEDS ORDERED: MEDICATION NOT ON FORMULARY EA (Carvedilol 1 TAB) MT SCH (12:15)
[2022-05-30] MEDS ORDERED: CARVEDILOL 12.5MG TABLET PO SCH (12:30)
[2022-05-30 12:51] LABS: PHOSPHORUS 6.2 mg/dL (2.5-4.9)
[2022-05-30] MEDS: METOCLOPRAMIDE HCL 10MG/2ML VIAL IV SCH ×2 (13:33→21:07)
[2022-05-30] MEDS: DILTIAZEM HCL 30MG TABLET PO SCH ×2 (13:38→21:07)
[2022-05-30 16:00] VITALS: BP 159/92
[2022-05-30 20:00] VITALS: BP 147/95
[2022-05-30] MEDS: HYDROCODONE/ACETAMINOPHEN 10/325MG TABLET PO PRN (21:08)
[2022-05-31] VITALS (14 sets, daily range): BP systolic 147–169; BP diastolic 69–99
[2022-05-31] MEDS: ONDANSETRON HCL 4MG/2ML INJ IV PRN (02:39)
[2022-05-31 05:05] LABS: BASOPHILS % 0.5 % (0.0-2.0); EOSINOPHILS % 9.3 % (0.0-5.0); HEMATOCRIT. 30.9 % (42.0-52.0); HEMOGLOBIN. 10.5 g/dL (14.0-18.0); LYMPHOCYTES % 13.7 % (20.0-50.0); MEAN CORPUSCULAR HEMOGLOBIN 31.5 pg (28.0-32.0); MEAN CORPUSCULAR VOLUME 92.2 fL (80.0-94.0); MEAN PLATELET VOLUME 8.4 fl (7.4-10.4); MONOCYTES % 7.5 % (2.0-8.0); PLATELET 111 x1000/uL (130-400); RED BLOOD CELL COUNT 3.35 mill/uL (4.7-6.1)
[2022-05-31] MEDS: METOCLOPRAMIDE HCL 10MG/2ML VIAL IV SCH ×3 (06:05→20:58)
[2022-05-31] MEDS: DILTIAZEM HCL 30MG TABLET PO SCH ×3 (06:05→18:00)
[2022-05-31] MEDS: SEVELAMER CARBONATE 800 MG TABLET PO SCH ×3 (09:44→18:10)
[2022-05-31] MEDS: PANTOPRAZOLE SODIUM 40 MG/VIAL IV SCH (09:44)
[2022-05-31] MEDS: FOLIC ACID/VITAMIN B COMP W-C TABLET PO SCH (09:44)
[2022-05-31] MEDS: AMLODIPINE 2.5MG TABLET PO SCH (20:57)
[2022-06-01] VITALS: BP 166/101
[2022-06-01] MEDS: DILTIAZEM HCL 30MG TABLET PO SCH ×4 (00:14→17:38)
[2022-06-01 04:00] VITALS: BP 158/101
[2022-06-01] MEDS: CLONIDINE 0.1MG TABLET PO PRN (05:09)
[2022-06-01 05:27] LABS: BASOPHILS % 0.4 % (0.0-2.0); EOSINOPHILS % 7.7 % (0.0-5.0); HEMATOCRIT. 30.4 % (42.0-52.0); HEMOGLOBIN. 10.4 g/dL (14.0-18.0); LYMPHOCYTES % 11.7 % (20.0-50.0); MEAN CORPUSCULAR HEMOGLOBIN 31.3 pg (28.0-32.0); MEAN CORPUSCULAR VOLUME 91.6 fL (80.0-94.0); MEAN PLATELET VOLUME 8.3 fl (7.4-10.4); MONOCYTES % 8.4 % (2.0-8.0); NEUTROPHILS % 71.8 % (40.0-76.0); PLATELET 112 x1000/uL (130-400); RED BLOOD CELL COUNT 3.31 mill/uL (4.7-6.1); RED CELL DISTRIBUTION WIDTH 12.8 % (11.6-14.6)
[2022-06-01] MEDS: METOCLOPRAMIDE HCL 10MG/2ML VIAL IV SCH ×3 (06:34→21:16)
[2022-06-01 07:55] VITALS: BP 141/89
[2022-06-01] MEDS: FOLIC ACID/VITAMIN B COMP W-C TABLET PO SCH (08:56)
[2022-06-01] MEDS: PANTOPRAZOLE SODIUM 40 MG/VIAL IV SCH (08:56)
[2022-06-01] MEDS: AMLODIPINE 2.5MG TABLET PO SCH (08:57)
[2022-06-01] MEDS: SEVELAMER CARBONATE 800 MG TABLET PO SCH ×3 (08:57→17:38)
[2022-06-01] MEDS: HYDROCODONE/ACETAMINOPHEN 10/325MG TABLET PO PRN (09:20)
[2022-06-01 12:00] VITALS: BP 151/92
[2022-06-01 16:00] VITALS: BP 149/95
[2022-06-01 20:00] VITALS: BP 158/97
[2022-06-02] VITALS (9 sets, daily range): BP systolic 135–170; BP diastolic 69–107
[2022-06-02] MEDS: DILTIAZEM HCL 30MG TABLET PO SCH ×2 (00:17→06:32)
[2022-06-02] MEDS: HYDROCODONE/ACETAMINOPHEN 10/325MG TABLET PO PRN (02:13)
[2022-06-02] MEDS: METOCLOPRAMIDE HCL 10MG/2ML VIAL IV SCH ×2 (06:31→12:26)
[2022-06-02] MEDS: SEVELAMER CARBONATE 800 MG TABLET PO SCH ×2 (08:40→12:26)
[2022-06-02] MEDS: FOLIC ACID/VITAMIN B COMP W-C TABLET PO SCH (08:41)
[2022-06-02] MEDS: PANTOPRAZOLE SODIUM 40 MG/VIAL IV SCH (08:41)
[2022-06-02] MEDS: CLONIDINE 0.1MG TABLET PO PRN (08:41)
[2022-06-02 08:49] LABS: BASOPHILS % 0.6 % (0.0-2.0); EOSINOPHILS % 7.9 % (0.0-5.0); HEMATOCRIT. 31.9 % (42.0-52.0); HEMOGLOBIN. 10.9 g/dL (14.0-18.0); LYMPHOCYTES % 16.6 % (20.0-50.0); MEAN CORPUSCULAR HEMOGLOBIN 31.3 pg (28.0-32.0); MEAN CORPUSCULAR VOLUME 91.6 fL (80.0-94.0); NEUTROPHILS % 65.9 % (40.0-76.0); PLATELET 110 x1000/uL (130-400); RED BLOOD CELL COUNT 3.48 mill/uL (4.7-6.1)
[2022-06-02] MEDS ORDERED: AMLODIPINE 5MG TABLET PO SCH (09:00)
[2022-06-02] MEDS ORDERED: DILTIAZEM HCL 180MG CAPSULE CD 24HR PO SCH (11:30)
[2022-06-02] MEDS ORDERED: NEPVIT MT (14:26)
[2022-06-02] MEDS ORDERED: DILT180C66 PO (14:26)
[2022-06-02] MEDS ORDERED: SEVE800T8 MT (14:26)
[2022-06-02] MEDS ORDERED: CINA60 MT (14:26)
[2022-06-03] MEDS ORDERED: AMLODIPINE 10MG TABLET PO SCH (09:00)
== END 2022-06-02 17:00 | disposition home or self-care (01) | DRG 44 ==
LOC: ER 20:25 → 7WST 05-29 06:41 → EDBEDREQ 05-29 06:46 → EDBEDREQSVC 05-29 06:46 → EDBEDREQTM 05-29 06:46 → ENRESERV 05-29 07:23 → 7WST 05-29 08:41
PROVIDERS: ADMIT Internal Medicine; ATTEND Internal Medicine
PROC: 5A1D70Z Performance of Urinary Filtration, Intermittent, Less than 6 Hours Per Day (ICD-10-PCS; principal; 2022-05-29)
PROC: 5A1D70Z Performance of Urinary Filtration, Intermittent, Less than 6 Hours Per Day (ICD-10-PCS; 2022-05-31)
PROC: 5A1D70Z Performance of Urinary Filtration, Intermittent, Less than 6 Hours Per Day (ICD-10-PCS; 2022-06-02)
DX: I62.02 Nontraumatic subacute subdural hemorrhage (principal); E43 Unspecified severe protein-calorie malnutrition; I12.0 Hypertensive chronic kidney disease with stage 5 chronic kidney disease or end stage renal disease; E87.1 Hypo-osmolality and hyponatremia; D63.1 Anemia in chronic kidney disease; N18.6 End stage renal disease; N25.81 Secondary hyperparathyroidism of renal origin; E87.5 Hyperkalemia; E87.6 Hypokalemia; I07.1 Rheumatic tricuspid insufficiency; D72.819 Decreased white blood cell count, unspecified; Z68.27 Body mass index [BMI] 27.0-27.9, adult; Z91.199 Patient's noncompliance with other medical treatment and regimen due to unspecified reason; Z99.2 Dependence on renal dialysis; Z90.49 Acquired absence of other specified parts of digestive tract; Z53.29 Procedure and treatment not carried out because of patient's decision for other reasons
CPT/HCPCS: 36415; 71045; 80048; 80053; 80076; 83735; 84100; 85025; 86705; 86709; 86803; 86850; 86900; 87340; 87426; 90935; 93005; 93970; 94640; 97162; 97166; 99291; C9113; C9803; J1953; J2270; J2405; J2765; J3490; J7030; J7050